=== PATIENT | male | born 2000 | race Two or more races ===

== ENCOUNTER 2020-02-05 10:54 | Emergency (ER) | payer MEDICAID, OTHER ==
[~2020-02-05] VITALS: Ht 182.9 cm; Wt 154.2 kg
[2020-02-05] MEDS ORDERED: SODIUM CHLORIDE 0.9% 500 ML IV ONE (11:30)
[2020-02-05] MEDS ORDERED: ONDANSETRON HCL 4 MG/2 ML VIAL IV ONE (11:30)
[2020-02-05] MEDS ORDERED: MORPHINE SULF INJ 2 MG/ML SYRINGE 1ML IV ONE (11:30)
[2020-02-05] MEDS ORDERED: TETANUS-DIPTH-ACEL PERTUSSIS 0.5ML SYR Tdap IM ONE (11:30)
[2020-02-05] MEDS ORDERED: IOHEXOL 300 MG/ML 100ML BOTTLE IJ ONE (11:43)
[2020-02-05] MEDS ORDERED: cefTRIAXone 1GM/50ML D5W 50 ML IV ONE (14:45)
[2020-02-05 16:40] VITALS: BP 125/71
== END 2020-02-05 17:08 | disposition short-term general hospital (02) ==
LOC: ER 10:54
DX: T79.7XXA Traumatic subcutaneous emphysema, initial encounter (principal); S27.321A Contusion of lung, unilateral, initial encounter; S40.021A Contusion of right upper arm, initial encounter; S30.1XXA Contusion of abdominal wall, initial encounter; M25.511 Pain in right shoulder; R51 Headache; V86.59XA Driver of other special all-terrain or other off-road motor vehicle injured in nontraffic accident, initial encounter; Y92.488 Other paved roadways as the place of occurrence of the external cause; Y93.I9 Activity, other involving external motion; Y99.8 Other external cause status
CPT/HCPCS: 70450; 71260; 72125; 73030; 74177; 90471; 90715; 96361; 96365; 96375; 99285; J0696; J2270; J2405; J7030; Q9967